=== PATIENT | male | born 1965 | race African-American/Black ===

== ENCOUNTER 2019-06-06 15:18 | Inpatient (IN) | payer MEDICAID ==
[~2019-06-06] VITALS: Ht 167.6 cm; Wt 61.9 kg
[2019-06-06 16:38] LABS: PROTHROMBIN TIME 10.4 sec (9.6-11.0)
[2019-06-06 16:39] LABS: CHLORIDE 78 mEq/L (98-107)
[2019-06-06 16:49] LABS: BASOPHILS % 0.4 % (0.0-2.0); EOSINOPHILS % 0.6 % (0.0-5.0); HEMATOCRIT. 37.7 % (42.0-52.0); HEMOGLOBIN. 13.5 g/dL (14.0-18.0); LYMPHOCYTES % 13.6 % (20.0-50.0); MEAN CORPUSCULAR HEMOGLOBIN 28.5 pg (28.0-32.0); MEAN CORPUSCULAR VOLUME 79.4 fL (80.0-94.0); MONOCYTES % 4.8 % (2.0-8.0); NEUTROPHILS % 80.6 % (40.0-76.0); PLATELET 127 x1000/uL (130-400); RED BLOOD CELL COUNT 4.75 mill/uL (4.7-6.1); RED CELL DISTRIBUTION WIDTH 15.5 % (11.6-14.6)
[2019-06-06] MEDS ORDERED: ASPIRIN 81MG TABLET PO ONE (18:15)
[2019-06-06] MEDS ORDERED: HYDRALAZINE 20MG/ML VIAL IV ONE (18:15)
[2019-06-06] MEDS ORDERED: SODIUM CHLORIDE 0.9% 1,000 ML IV ONE (18:15)
[2019-06-06] MEDS ORDERED: POTASSIUM CHLORIDE 20MEQ TABLET SR PO ONE (18:15)
[2019-06-06 19:10] LABS: CLARITY URINE CLEAR (CLEAR); COLOR URINE YELLOW (YELLOW); KETONES URINE NEGATIVE (NEGATIVE); LEUKOCYTE ESTERASE URINE NEGATIVE (NEGATIVE); NITRITE URINE NEGATIVE (NEGATIVE); OCCULT BLOOD URINE 2+ (NEGATIVE); PH URINE 5.5 (4.5-8.0); PROTEIN URINE 4+ (NEGATIVE); SPECIFIC GRAVITY URINE 1.017 (1.005-1.030); UROBILINOGEN URINE 0.2 E.U./dL (0.2-1.0)
[2019-06-06] MEDS ORDERED: MAGNESIUM/ALUMINUM HYDROXIDE/SIMETHICONE 30ML UDC PO PRN (19:45)
[2019-06-06] MEDS ORDERED: TRAMADOL 50MG TABLET PO PRN (19:45)
[2019-06-06] MEDS ORDERED: DOCUSATE SODIUM 100MG CAPSULE PO PRN (19:45)
[2019-06-06] MEDS ORDERED: ACETAMINOPHEN 325MG TABLET PO PRN (19:45)
[2019-06-06] MEDS ORDERED: ZOLPIDEM TARTRATE 5MG TABLET PO PRN (19:45)
[2019-06-06] MEDS ORDERED: GUAIFENESIN 200MG/10ML SUGAR FREE UDC PO PRN (19:45)
[2019-06-06] MEDS ORDERED: ONDANSETRON HCL 4MG/2ML INJ IV PRN (19:45)
[2019-06-06] MEDS ORDERED: LORAZEPAM 0.5MG TABLET PO PRN (19:45)
[2019-06-06] MEDS ORDERED: IPRATROPIUM/ALBUTEROL 0.5-3(2.5)MG/3ML NEB NEB PRN (19:45)
[2019-06-06] MEDS ORDERED: NITROGLYCERIN 0.4MG TABLET SL SL PRN (19:45)
[2019-06-06 22:07] LABS: ETHANOL BLOOD < 10 mg/dL
[2019-06-06 22:09] LABS: TOTAL IRON BINDING CAPACITY 250 ug/dL (250-450)
[2019-06-06 22:10] LABS: LDL CHOLESTEROL 234 mg/dL (5-100)
[2019-06-06 22:11] LABS: HDL CHOLESTEROL 61 mg/dL (40-59)
[2019-06-06 22:12] LABS: T4 FREE 1.19 ng/dL (0.76-1.46)
[2019-06-06 22:14] LABS: CREATINE KINASE MB FRACTION 3.5 ng/mL (0.5-3.6)
[2019-06-06 22:34] LABS: VITAMIN B12 SERUM >2000 pg/mL pg/mL (211-911)
[2019-06-06 22:36] LABS: FOLIC ACID (FOLATE) SERUM > 20.00 ng/mL (>5.38)
[2019-06-06] MEDS ORDERED: CARV12.545 PO (23:07)
[2019-06-06] MEDS ORDERED: HYDR100T26 PO (23:07)
[2019-06-06] MEDS ORDERED: NIFE-32 PO (23:08)
[2019-06-06] MEDS ORDERED: ISOS120T9 PO (23:10)
[2019-06-06] MEDS: FAMOTIDINE 20MG TABLET PO SCH (23:16)
[2019-06-06] MEDS: AMLODIPINE 10MG TABLET PO SCH (23:17)
[2019-06-06] MEDS: METOPROLOL TARTRATE 25MG TABLET PO SCH (23:17)
[2019-06-06] MEDS: SODIUM CHLORIDE 0.9% 1,000 ML IV SCH (23:18)
[2019-06-06] MEDS: CLONIDINE 0.1MG TABLET PO PRN (23:18)
[2019-06-06 23:59] LABS: SODIUM URINE RANDOM 22 mEq/L
[2019-06-07] VITALS (14 sets, daily range): BP systolic 125–183; BP diastolic 70–124
[2019-06-07] MEDS ORDERED: KCL 20MEQ/100ML PREMIX 100 ML IV NR
[2019-06-07 00:05] LABS: *AMPHETAMINES SCREEN URINE NEGATIVE (NEGATIVE)
[2019-06-07 00:06] LABS: *BARBITURATES SCREEN URINE NEGATIVE (NEGATIVE); *BENZODIAZEPINES SCREEN URINE NEGATIVE (NEGATIVE); *COCAINE SCREEN URINE PRESUMTIVE POSITIVE (NEGATIVE); CANNABINOID URINE SCREEN PRESUMTIVE POSITIVE (NEGATIVE); METHADONE URINE SCREEN NEGATIVE (NEGATIVE); OPIATES URINE SCREEN NEGATIVE (NEGATIVE); PHENCYCLIDINE URINE SCREEN NEGATIVE (NEGATIVE)
[2019-06-07] MEDS: ENOXAPARIN 30MG/0.3ML SYR SUBCUT SCH ×2 (00:10→21:01)
[2019-06-07 06:55] LABS: CHLORIDE 84 mEq/L (98-107)
[2019-06-07 07:03] LABS: PHOSPHORUS 7.9 mg/dL (2.5-4.9)
[2019-06-07 07:05] LABS: CREATINE KINASE 211 IU/L (39-308)
[2019-06-07 07:07] LABS: CREATINE KINASE MB FRACTION 3.2 ng/mL (0.5-3.6)
[2019-06-07 07:30] LABS: BASOPHILS % 0.6 % (0.0-2.0); EOSINOPHILS % 1.4 % (0.0-5.0); HEMATOCRIT. 32.7 % (42.0-52.0); HEMOGLOBIN. 11.8 g/dL (14.0-18.0); LYMPHOCYTES % 19.6 % (20.0-50.0); MEAN CORPUSCULAR HEMOGLOBIN 28.7 pg (28.0-32.0); MEAN CORPUSCULAR VOLUME 79.6 fL (80.0-94.0); MEAN PLATELET VOLUME 8.9 fl (7.4-10.4); MONOCYTES % 11.2 % (2.0-8.0); NEUTROPHILS % 67.2 % (40.0-76.0); PLATELET 129 x1000/uL (130-400); RED BLOOD CELL COUNT 4.11 mill/uL (4.7-6.1); RED CELL DISTRIBUTION WIDTH 15.5 % (11.6-14.6)
[2019-06-07 07:43] LABS: HEPATITIS B SURFACE ANTIGEN NEGATIVE
[2019-06-07] MEDS ORDERED: SODIUM BICARBONATE 4% (2.4MEQ) 5ML VIAL IV ONE (07:59)
[2019-06-07] MEDS ORDERED: LIDOCAINE HCL 1% 20ML VIAL (Pyxis) INJ ONE (07:59)
[2019-06-07 08:12] LABS: HEPATITIS A AB IGM NEGATIVE (NEGATIVE)
[2019-06-07] MEDS ORDERED: ATORVASTATIN CALCIUM 10MG TABLET PO SCH (09:00)
[2019-06-07 12:22] LABS: HEPATITIS B SURFACE AB 5.8 mIU/mL
[2019-06-07 13:01] LABS: HEPATITIS A AB IGM NEGATIVE (NEGATIVE)
[2019-06-07] MEDS: CLONIDINE 0.1MG TABLET PO PRN (13:21)
[2019-06-07] MEDS: LOSARTAN POTASSIUM 50 MG TABLET PO SCH ×2 (13:21→21:00)
[2019-06-07] MEDS: SEVELAMER CARBONATE 800 MG TABLET PO SCH ×3 (13:22→18:37)
[2019-06-07] MEDS: METOPROLOL TARTRATE 25MG TABLET PO SCH ×2 (13:22→21:00)
[2019-06-07] MEDS: AMLODIPINE 10MG TABLET PO SCH (13:22)
[2019-06-07] MEDS: FAMOTIDINE 20MG TABLET PO SCH (21:00)
[2019-06-08] VITALS (13 sets, daily range): BP systolic 130–153; BP diastolic 56–108
[2019-06-08] MEDS: SODIUM CHLORIDE 0.9% 1,000 ML IV SCH ×2 (06:20→11:43)
[2019-06-08] MEDS: SEVELAMER CARBONATE 800 MG TABLET PO SCH ×3 (08:28→18:57)
[2019-06-08] MEDS: LOSARTAN POTASSIUM 50 MG TABLET PO SCH ×2 (08:29→21:02)
[2019-06-08] MEDS: METOPROLOL TARTRATE 25MG TABLET PO SCH ×2 (08:30→21:02)
[2019-06-08] MEDS: AMLODIPINE 10MG TABLET PO SCH ×2 (08:30→13:35)
[2019-06-08] MEDS: CLONIDINE 0.1MG TABLET PO PRN (18:55)
[2019-06-08] MEDS: ATORVASTATIN CALCIUM 40MG TABLET PO SCH (21:02)
[2019-06-08] MEDS: FAMOTIDINE 20MG TABLET PO SCH (21:02)
[2019-06-08] MEDS: ENOXAPARIN 30MG/0.3ML SYR SUBCUT SCH (21:03)
[2019-06-09] VITALS (12 sets, daily range): BP systolic 133–168; BP diastolic 67–103
[2019-06-09] MEDS: SODIUM CHLORIDE 0.9% 1,000 ML IV SCH ×3 (03:48→18:25)
[2019-06-09] MEDS: SEVELAMER CARBONATE 800 MG TABLET PO SCH ×3 (08:38→18:25)
[2019-06-09] MEDS: AMLODIPINE 10MG TABLET PO SCH (08:38)
[2019-06-09] MEDS: LOSARTAN POTASSIUM 50 MG TABLET PO SCH ×2 (08:38→20:50)
[2019-06-09] MEDS: METOPROLOL TARTRATE 25MG TABLET PO SCH ×2 (08:39→20:50)
[2019-06-09] MEDS: CLONIDINE 0.1MG TABLET PO PRN (18:46)
[2019-06-09] MEDS: FAMOTIDINE 20MG TABLET PO SCH (20:49)
[2019-06-09] MEDS: ENOXAPARIN 30MG/0.3ML SYR SUBCUT SCH (20:50)
[2019-06-09] MEDS: ATORVASTATIN CALCIUM 40MG TABLET PO SCH (20:50)
[2019-06-09] MEDS ORDERED: DOXAZOSIN MESYLATE 2MG TABLET PO SCH (21:00)
[2019-06-10] VITALS (17 sets, daily range): BP systolic 137–172; BP diastolic 82–112
[2019-06-10] MEDS: SODIUM CHLORIDE 0.9% 1,000 ML IV SCH (06:49)
[2019-06-10] MEDS: SEVELAMER CARBONATE 800 MG TABLET PO SCH ×2 (08:25→14:44)
[2019-06-10 10:02] LABS: CLARITY URINE CLEAR (CLEAR); COLOR URINE YELLOW (YELLOW); KETONES URINE NEGATIVE (NEGATIVE); LEUKOCYTE ESTERASE URINE NEGATIVE (NEGATIVE); NITRITE URINE NEGATIVE (NEGATIVE); OCCULT BLOOD URINE TRACE (NEGATIVE); PROTEIN URINE 3+ (NEGATIVE); SPECIFIC GRAVITY URINE 1.009 (1.005-1.030); UROBILINOGEN URINE 0.2 E.U./dL (0.2-1.0)
[2019-06-10] MEDS: AMLODIPINE 10MG TABLET PO SCH (11:30)
[2019-06-10] MEDS: METOPROLOL TARTRATE 25MG TABLET PO SCH (11:30)
[2019-06-10] MEDS: LOSARTAN POTASSIUM 50 MG TABLET PO SCH (11:30)
[2019-06-10] MEDS ORDERED: LOSA50TA3 MT (12:24)
[2019-06-10] MEDS ORDERED: LIP40 PO (12:24)
[2019-06-10] MEDS ORDERED: SODIUM BICARBONATE 4% (2.4MEQ) 5ML VIAL IV ONE (12:54)
[2019-06-10] MEDS ORDERED: LIDOCAINE HCL 1% 20ML VIAL (Pyxis) INJ ONE (12:55)
[2019-06-10] MEDS ORDERED: CEFAZOLIN 1000MG PREMIX 50 ML IV ONE ×2 (13:00→13:06)
[2019-06-10] MEDS ORDERED: FENTANYL CITRATE/PF 50MCG/ML 2ML VIAL IV ONE (13:05)
[2019-06-10] MEDS ORDERED: FENTANYL CITRATE/PF 50MCG/ML 2ML VIAL ONE (13:07)
[2019-06-10] MEDS ORDERED: HYDRALAZINE HCL 50MG TABLET PO SCH (14:00)
[2019-06-15] MEDS ORDERED: COR12 PO (11:35)
== END 2019-06-10 17:25 | disposition home or self-care (01) | DRG 204 ==
LOC: ER 15:18 → 5EST 18:57 → EDBEDREQ 19:01 → EDBEDREQTM 19:01 → EDBEDREQSVC 19:01 → ENRESERV 21:46
PROVIDERS: ADMIT Internal Medicine; ATTEND Internal Medicine
PROC: 02HV33Z Insertion of Infusion Device into Superior Vena Cava, Percutaneous Approach (ICD-10-PCS; principal; 2019-06-07)
PROC: B5181ZA Fluoroscopy of Superior Vena Cava using Low Osmolar Contrast, Guidance (ICD-10-PCS; 2019-06-07)
PROC: B548ZZA Ultrasonography of Superior Vena Cava, Guidance (ICD-10-PCS; 2019-06-07)
PROC: 5A1D70Z Performance of Urinary Filtration, Intermittent, Less than 6 Hours Per Day (ICD-10-PCS; 2019-06-08)
PROC: 5A1D70Z Performance of Urinary Filtration, Intermittent, Less than 6 Hours Per Day (ICD-10-PCS; 2019-06-08)
PROC: 0JH63XZ Insertion of Tunneled Vascular Access Device into Chest Subcutaneous Tissue and Fascia, Percutaneous Approach (ICD-10-PCS; 2019-06-10)
PROC: 02HV33Z Insertion of Infusion Device into Superior Vena Cava, Percutaneous Approach (ICD-10-PCS; 2019-06-10)
PROC: B5181ZA Fluoroscopy of Superior Vena Cava using Low Osmolar Contrast, Guidance (ICD-10-PCS; 2019-06-10)
PROC: 02PYX3Z Removal of Infusion Device from Great Vessel, External Approach (ICD-10-PCS; 2019-06-10)
DX: R55 Syncope and collapse (principal); N17.0 Acute kidney failure with tubular necrosis; E87.1 Hypo-osmolality and hyponatremia; E11.22 Type 2 diabetes mellitus with diabetic chronic kidney disease; I12.0 Hypertensive chronic kidney disease with stage 5 chronic kidney disease or end stage renal disease; E87.6 Hypokalemia; D63.1 Anemia in chronic kidney disease; E78.00 Pure hypercholesterolemia, unspecified; E78.5 Hyperlipidemia, unspecified; R79.89 Other specified abnormal findings of blood chemistry; E44.1 Mild protein-calorie malnutrition; F12.10 Cannabis abuse, uncomplicated; F14.10 Cocaine abuse, uncomplicated; N18.6 End stage renal disease; Z79.899 Other long term (current) drug therapy; Z82.49 Family history of ischemic heart disease and other diseases of the circulatory system; Z68.22 Body mass index [BMI] 22.0-22.9, adult; R31.9 Hematuria, unspecified; Z71.51 Drug abuse counseling and surveillance of drug abuser
CPT/HCPCS: 36415; 36558; 36589; 71045; 76770; 76937; 77001; 80048; 80053; 80061; 80305; 80320; 81003; 82550; 82553; 82570; 82607; 82746; 83036; 83540; 83550; 83735; 83880; 83935; 84100; 84133; 84300; 84439; 84443; 84484; 84550; 85025; 86703; 86705; 86706; 86709; 86803; 87340; 93005; 93970; 99152; 99153; 99285; C1750; C1752; C1769; J0360; J0690; J1642; J1650; J3010; J3480; J3490; G0480; G0500

== ENCOUNTER 2019-06-14 10:49 | Inpatient (IN) | payer MEDICAID ==
[~2019-06-14] VITALS: Ht 175.3 cm; Wt 63.5 kg
[~2019-06-14 10:49] MED LIST: CARV12.545 PO; HYDR100T26 PO; ISOS120T9 PO; LIP40 PO; LOSA50TA3 MT; NIFE-32 PO
[2019-06-14 12:17] LABS: EOSINOPHILS % 1.6 % (0.0-5.0); HEMATOCRIT. 26.6 % (42.0-52.0); HEMOGLOBIN. 9.1 g/dL (14.0-18.0); LYMPHOCYTES % 11.7 % (20.0-50.0); MEAN CORPUSCULAR HEMOGLOBIN 28.8 pg (28.0-32.0); MEAN PLATELET VOLUME 7.1 fl (7.4-10.4); MONOCYTES % 8.1 % (2.0-8.0); NEUTROPHILS % 77.6 % (40.0-76.0); PLATELET 212 x1000/uL (130-400); RED BLOOD CELL COUNT 3.17 mill/uL (4.7-6.1); RED CELL DISTRIBUTION WIDTH 16.1 % (11.6-14.6)
[2019-06-14 12:22] LABS: CHLORIDE 104 mEq/L (98-107)
[2019-06-14 12:23] LABS: INR 0.9
[2019-06-14] MEDS ORDERED: AMLODIPINE 10MG TABLET PO SCH (12:30)
[2019-06-14] MEDS ORDERED: LOSARTAN POTASSIUM 50 MG TABLET PO SCH (12:30)
[2019-06-14] MEDS ORDERED: CARVEDILOL 12.5MG TABLET PO ONE (12:30)
[2019-06-14] MEDS ORDERED: HYDRALAZINE 20MG/ML VIAL IV ONE ×2 (12:45→15:45)
[2019-06-14] MEDS ORDERED: HYDRALAZINE HCL 50MG TABLET PO SCH (14:00)
[2019-06-14] MEDS ORDERED: ONDANSETRON HCL 4MG/2ML INJ IV PRN (14:45)
[2019-06-14] MEDS ORDERED: ACETAMINOPHEN 325MG TABLET PO PRN (14:45)
[2019-06-14] MEDS: NIFEDIPINE XL 60MG TAB PO SCH (16:49)
[2019-06-14] MEDS: LOSARTAN POTASSIUM 50 MG TABLET PO SCH (16:49)
[2019-06-14] MEDS: HYDRALAZINE HCL 100MG TABLET PO SCH (16:50)
[2019-06-14] MEDS: HYDRALAZINE 20MG/ML VIAL IV PRN ×2 (16:51→17:22)
[2019-06-14 17:00] VITALS: BP 236/132
[2019-06-14] MEDS: CLONIDINE 0.1MG TABLET PO PRN (17:22)
[2019-06-14] MEDS: SEVELAMER CARBONATE 800 MG TABLET PO SCH (18:31)
[2019-06-14] MEDS: ISOSORBIDE MONONITRATE 120MG TABLET SR 24HR PO SCH (18:31)
[2019-06-14 20:00] VITALS: BP 187/119
[2019-06-14] MEDS: HEPARIN 5000 UNITS/ML VIAL SUBCUT SCH (20:37)
[2019-06-14] MEDS ORDERED: CARVEDILOL 12.5MG TABLET PO SCH (21:00)
[2019-06-14] MEDS ORDERED: ATORVASTATIN CALCIUM 40MG TABLET PO SCH ×2 (21:00)
[2019-06-15] VITALS: BP 144/101
[2019-06-15 04:00] VITALS: BP 168/100
[2019-06-15] MEDS: CLONIDINE 0.1MG TABLET PO PRN (06:23)
[2019-06-15 06:26] LABS: BASOPHILS % 1.1 % (0.0-2.0); EOSINOPHILS % 1.9 % (0.0-5.0); HEMATOCRIT. 24.2 % (42.0-52.0); HEMOGLOBIN. 8.4 g/dL (14.0-18.0); LYMPHOCYTES % 15.5 % (20.0-50.0); MEAN CORPUSCULAR HEMOGLOBIN 28.7 pg (28.0-32.0); MEAN CORPUSCULAR VOLUME 82.1 fL (80.0-94.0); MEAN PLATELET VOLUME 7.4 fl (7.4-10.4); MONOCYTES % 9.4 % (2.0-8.0); NEUTROPHILS % 72.1 % (40.0-76.0); PLATELET 214 x1000/uL (130-400); RED BLOOD CELL COUNT 2.94 mill/uL (4.7-6.1); RED CELL DISTRIBUTION WIDTH 16.3 % (11.6-14.6)
[2019-06-15 06:32] LABS: CHLORIDE 103 mEq/L (98-107)
[2019-06-15 06:49] VITALS: BP 156/103
[2019-06-15 08:00] VITALS: BP 129/68
[2019-06-15] MEDS: SEVELAMER CARBONATE 800 MG TABLET PO SCH ×2 (08:43→13:20)
[2019-06-15] MEDS: HYDRALAZINE HCL 100MG TABLET PO SCH ×2 (08:44→13:00)
[2019-06-15] MEDS: NIFEDIPINE XL 60MG TAB PO SCH (08:45)
[2019-06-15] MEDS: LOSARTAN POTASSIUM 50 MG TABLET PO SCH (08:45)
[2019-06-15] MEDS: HEPARIN 5000 UNITS/ML VIAL SUBCUT SCH (08:46)
[2019-06-15] MEDS: ISOSORBIDE MONONITRATE 120MG TABLET SR 24HR PO SCH (08:46)
[2019-06-15] MEDS ORDERED: CARVEDILOL 12.5MG TABLET PO SCH (09:00)
[2019-06-15] MEDS ORDERED: COR12 PO (11:35)
[2019-06-15 12:27] VITALS: BP 162/98
[2019-06-15 15:31] VITALS: BP 156/80
[2019-06-15] MEDS ORDERED: LOSARTAN POTASSIUM 50 MG TABLET PO SCH (21:00)
== END 2019-06-15 15:30 | disposition home or self-care (01) | DRG 425 ==
LOC: ER 10:49 → 6WST 14:06 → EDBEDREQ 14:07 → EDBEDREQSVC 14:07 → EDBEDREQTM 14:07 → ENRESERV 15:13
PROVIDERS: ADMIT Internal Medicine; ATTEND Internal Medicine
PROC: 5A1D70Z Performance of Urinary Filtration, Intermittent, Less than 6 Hours Per Day (ICD-10-PCS; principal; 2019-06-15)
DX: E87.70 Fluid overload, unspecified (principal); I12.0 Hypertensive chronic kidney disease with stage 5 chronic kidney disease or end stage renal disease; I16.1 Hypertensive emergency; N18.6 End stage renal disease; R00.0 Tachycardia, unspecified; R79.89 Other specified abnormal findings of blood chemistry; E78.5 Hyperlipidemia, unspecified; D63.1 Anemia in chronic kidney disease; I45.10 Unspecified right bundle-branch block; Z99.2 Dependence on renal dialysis
CPT/HCPCS: 36415; 71045; 80053; 80061; 82962; 83735; 84484; 85025; 93005; 93306; 99285; J0360; J1644

== ENCOUNTER 2019-11-19 08:31 | Inpatient (IN) | payer MEDICAID ==
[~2019-11-19] VITALS: Ht 175.3 cm; Wt 57.8 kg
[~2019-11-19 08:31] MED LIST changes: -CARV12.545 PO; +COR12 PO
[2019-11-19] MEDS ORDERED: MORPHINE SULFATE 4 MG/ML CPJ (NOT FOR IM USE) IV STA (10:10)
[2019-11-19] MEDS ORDERED: ONDANSETRON HCL 4MG/2ML INJ IV STA (10:10)
[2019-11-19 11:25] LABS: EOSINOPHILS % 1.8 % (0.0-5.0); HEMOGLOBIN. 12.8 g/dL (14.0-18.0); LYMPHOCYTES % 19.7 % (20.0-50.0); MEAN CORPUSCULAR HEMOGLOBIN 28.2 pg (28.0-32.0); MEAN CORPUSCULAR VOLUME 83.7 fL (80.0-94.0); MEAN PLATELET VOLUME 7.2 fl (7.4-10.4); MONOCYTES % 6.6 % (2.0-8.0); NEUTROPHILS % 70.9 % (40.0-76.0); PLATELET 164 x1000/uL (130-400); RED BLOOD CELL COUNT 4.53 mill/uL (4.7-6.1); RED CELL DISTRIBUTION WIDTH 19.2 % (11.6-14.6)
[2019-11-19 11:31] LABS: CHLORIDE 96 mEq/L (98-107)
[2019-11-19 14:31] LABS: CLARITY URINE CLEAR (CLEAR); COLOR URINE YELLOW (YELLOW); KETONES URINE NEGATIVE (NEGATIVE); LEUKOCYTE ESTERASE URINE NEGATIVE (NEGATIVE); NITRITE URINE NEGATIVE (NEGATIVE); OCCULT BLOOD URINE TRACE (NEGATIVE); PH URINE >=9.0 (4.5-8.0); PROTEIN URINE 3+ (NEGATIVE); SPECIFIC GRAVITY URINE 1.014 (1.005-1.030); UROBILINOGEN URINE 0.2 E.U./dL (0.2-1.0)
[2019-11-19] MEDS ORDERED: ACETAMINOPHEN 325MG TABLET PO PRN (14:45)
[2019-11-19] MEDS ORDERED: MORPHINE SULFATE 2 MG/ML CPJ (NOT FOR IM USE) IV PRN (14:45)
[2019-11-19] MEDS ORDERED: MAGNESIUM/ALUMINUM HYDROXIDE/SIMETHICONE 30ML UDC PO PRN (14:45)
[2019-11-19] MEDS ORDERED: IPRATROPIUM/ALBUTEROL 0.5-3(2.5)MG/3ML NEB NEB PRN (14:45)
[2019-11-19] MEDS ORDERED: DOCUSATE SODIUM 100MG CAPSULE PO PRN (14:45)
[2019-11-19] MEDS ORDERED: ONDANSETRON HCL 4MG/2ML INJ IV PRN (14:45)
[2019-11-19] MEDS ORDERED: DIPHENHYDRAMINE 50MG/ML VIAL IV PRN (14:45)
[2019-11-19] MEDS ORDERED: ENOXAPARIN 40MG/0.4ML SYR SUBCUT SCH (14:45)
[2019-11-19] MEDS ORDERED: LORAZEPAM 2MG/ML CPJ IV PRN (14:45)
[2019-11-19] MEDS ORDERED: NA PHOS,M-B/NA PHOS,DI-BA ENEMA 118ML PR PRN (14:45)
[2019-11-19] MEDS ORDERED: HYDROCODONE/ACETAMINOPHEN 5/325MG TABLET PO PRN (14:45)
[2019-11-19] MEDS ORDERED: GUAIFENESIN 200MG/10ML SUGAR FREE UDC PO PRN (14:45)
[2019-11-19] MEDS: ENOXAPARIN 30MG/0.3ML SYR SUBCUT SCH (15:36)
[2019-11-19] MEDS: CLONIDINE 0.1MG TABLET PO PRN (22:29)
[2019-11-19 22:45] VITALS: BP 191/108
[2019-11-20] VITALS: BP 165/97
[2019-11-20 04:00] VITALS: BP 178/110
[2019-11-20] MEDS: CLONIDINE 0.1MG TABLET PO PRN ×2 (05:00→14:47)
[2019-11-20 06:59] LABS: BASOPHILS % 1.2 % (0.0-2.0); EOSINOPHILS % 3.3 % (0.0-5.0); HEMATOCRIT. 32.9 % (42.0-52.0); HEMOGLOBIN. 11.2 g/dL (14.0-18.0); LYMPHOCYTES % 27.5 % (20.0-50.0); MEAN CORPUSCULAR HEMOGLOBIN 28.5 pg (28.0-32.0); MEAN CORPUSCULAR VOLUME 84.1 fL (80.0-94.0); MEAN PLATELET VOLUME 7.1 fl (7.4-10.4); MONOCYTES % 10.4 % (2.0-8.0); NEUTROPHILS % 57.6 % (40.0-76.0); PLATELET 163 x1000/uL (130-400); RED BLOOD CELL COUNT 3.92 mill/uL (4.7-6.1); RED CELL DISTRIBUTION WIDTH 18.7 % (11.6-14.6)
[2019-11-20] MEDS ORDERED: AMLO10TA80 PO (07:09)
[2019-11-20] MEDS ORDERED: MINO10TA PO (07:09)
[2019-11-20] MEDS ORDERED: CALC667C PO (07:09)
[2019-11-20] MEDS ORDERED: DOXA2TAB2 PO (07:09)
[2019-11-20] MEDS ORDERED: REN800 PO (07:09)
[2019-11-20] MEDS ORDERED: LOSA50TA41 PO (07:09)
[2019-11-20 07:10] LABS: CHLORIDE 96 mEq/L (98-107)
[2019-11-20 07:30] LABS: LDL CHOLESTEROL 45 mg/dL (5-100)
[2019-11-20 07:33] LABS: HDL CHOLESTEROL 55 mg/dL (40-59); T4 FREE 1.35 ng/dL (0.76-1.46)
[2019-11-20 08:00] VITALS: BP 153/94
[2019-11-20] MEDS: ASPIRIN 81MG EC TABLET PO SCH (08:11)
[2019-11-20 12:00] VITALS: BP 165/109
[2019-11-20] MEDS: ENOXAPARIN 30MG/0.3ML SYR SUBCUT SCH (14:21)
[2019-11-20 14:45] VITALS: BP 171/118
[2019-11-20 20:00] VITALS: BP 163/124
[2019-11-20] MEDS: METOPROLOL TARTRATE 25MG TABLET PO SCH (20:21)
[2019-11-20] MEDS: CLONIDINE 0.2MG TABLET PO PRN (21:05)
[2019-11-21] VITALS: BP 148/84
[2019-11-21 04:00] VITALS: BP 173/112
[2019-11-21] MEDS: CLONIDINE 0.2MG TABLET PO PRN (04:22)
[2019-11-21 08:00] VITALS: BP 164/103
[2019-11-21] MEDS ORDERED: LOSARTAN POTASSIUM 50 MG TABLET PO SCH (08:00)
[2019-11-21] MEDS ORDERED: AMLODIPINE 10MG TABLET PO SCH ×2 (08:00→09:00)
[2019-11-21] MEDS: ASPIRIN 81MG EC TABLET PO SCH (10:09)
[2019-11-21] MEDS: METOPROLOL TARTRATE 25MG TABLET PO SCH (10:09)
[2019-11-21] MEDS: CLONIDINE 0.1MG TABLET PO PRN (10:09)
[2019-11-21 12:30] VITALS: BP 135/95
[2019-11-21] MEDS: ENOXAPARIN 30MG/0.3ML SYR SUBCUT SCH (15:00)
[2019-11-21 15:02] VITALS: BP 135/95
== END 2019-11-21 18:25 | disposition home or self-care (01) | DRG 194 ==
LOC: ER 09:16 → 6WST 14:01 → EDBEDREQ 14:09 → EDBEDREQTM 14:09 → ENRESERV 20:12
PROVIDERS: ADMIT Internal Medicine; ATTEND Internal Medicine
PROC: 5A1D70Z Performance of Urinary Filtration, Intermittent, Less than 6 Hours Per Day (ICD-10-PCS; principal; 2019-11-20)
DX: I13.2 Hypertensive heart and chronic kidney disease with heart failure and with stage 5 chronic kidney disease, or end stage renal disease (principal); E87.70 Fluid overload, unspecified; J96.00 Acute respiratory failure, unspecified whether with hypoxia or hypercapnia; I25.10 Atherosclerotic heart disease of native coronary artery without angina pectoris; K56.609 Unspecified intestinal obstruction, unspecified as to partial versus complete obstruction; E46 Unspecified protein-calorie malnutrition; N18.6 End stage renal disease; R65.10 Systemic inflammatory response syndrome (SIRS) of non-infectious origin without acute organ dysfunction; Z99.2 Dependence on renal dialysis; Z79.899 Other long term (current) drug therapy; Z68.1 Body mass index [BMI] 19.9 or less, adult; I50.33 Acute on chronic diastolic (congestive) heart failure
CPT/HCPCS: 36415; 74176; 80048; 80053; 80061; 81003; 84439; 84443; 84484; 85025; 93005; 93306; 96374; 99285; J1650; J2270; J2405

== ENCOUNTER 2020-01-29 13:53 | Inpatient (IN) | payer MEDICAID ==
[~2020-01-29] VITALS: Ht 175.3 cm; Wt 60.3 kg
[~2020-01-29 13:53] MED LIST changes: +AMLO10TA80 PO; +CALC667C PO; +DOXA2TAB2 PO; +LOSA50TA41 PO; +MINO10TA PO; +REN800 PO
[2020-01-29] MEDS ORDERED: ONDANSETRON HCL 4MG/2ML INJ IM ONE (16:00)
[2020-01-29] MEDS ORDERED: LABETALOL 5MG/ML SYR 20 MG/4 ML SYRINGE IV ONE (16:00)
[2020-01-29 16:32] LABS: BASOPHILS % 0.7 % (0.0-2.0); EOSINOPHILS % 0.5 % (0.0-5.0); HEMATOCRIT. 40.8 % (42.0-52.0); HEMOGLOBIN. 13.7 g/dL (14.0-18.0); MEAN CORPUSCULAR HEMOGLOBIN 29.6 pg (28.0-32.0); MEAN CORPUSCULAR VOLUME 87.8 fL (80.0-94.0); MONOCYTES % 4.1 % (2.0-8.0); NEUTROPHILS % 79.7 % (40.0-76.0); RED BLOOD CELL COUNT 4.65 mill/uL (4.7-6.1); RED CELL DISTRIBUTION WIDTH 15.7 % (11.6-14.6)
[2020-01-29 16:44] LABS: CHLORIDE 101 mEq/L (98-107)
[2020-01-29] MEDS ORDERED: HYDRALAZINE 20MG/ML VIAL IV ONE (17:00)
[2020-01-29 17:18] LABS: MEAN PLATELET VOLUME 7.6 fl (7.4-10.4); PLATELET 129 x1000/uL (130-400)
[2020-01-29] MEDS ORDERED: NITROGLYCERIN OINT 1GM/INCH UDPKT TD NR (18:15)
[2020-01-29] MEDS ORDERED: ONDANSETRON HCL 4MG/2ML INJ IV ONE (20:30)
[2020-01-29] MEDS: NICARDIPINE IV PRN (21:06)
[2020-01-30] MEDS: ONDANSETRON HCL 4MG/2ML INJ IV PRN ×2 (04:33→14:40)
[2020-01-30] MEDS ORDERED: MORPHINE SULFATE 2 MG/ML CPJ (NOT FOR IM USE) IV PRN (08:45)
[2020-01-30] MEDS ORDERED: ACETAMINOPHEN 325MG TABLET PO PRN (08:45)
[2020-01-30] MEDS ORDERED: CLONIDINE 0.1MG TABLET PO PRN (08:45)
[2020-01-30] MEDS ORDERED: LOSARTAN POTASSIUM 100 MG TABLET PO SCH (09:00)
[2020-01-30] MEDS: AMLODIPINE 10MG TABLET PO SCH (10:45)
[2020-01-30] MEDS: LOSARTAN POTASSIUM 50 MG TABLET PO SCH ×2 (11:58→22:54)
[2020-01-30] MEDS: HYDRALAZINE HCL 50MG TABLET PO SCH ×2 (12:05→18:12)
[2020-01-30] MEDS: SEVELAMER CARBONATE 800 MG TABLET PO SCH ×2 (14:00→18:04)
[2020-01-30] MEDS ORDERED: HYDRALAZINE HCL 100MG TABLET PO SCH (14:00)
[2020-01-30] MEDS ORDERED: IOHEXOL-300 100 ML BOTTLE ONE (15:28)
[2020-01-30] MEDS: SPIRONOLACTONE 25MG TABLET PO SCH ×2 (18:42→23:02)
[2020-01-30] MEDS: NICARDIPINE IV PRN (20:41)
[2020-01-30] MEDS ORDERED: NICARDIPINE 50 MG in SODIUM CHLORIDE 0.9% 250 ML IV PRN (21:15)
[2020-01-30] MEDS: ATORVASTATIN CALCIUM 20MG TABLET PO SCH (22:55)
[2020-01-30 23:37] VITALS: BP 160/104
[2020-01-30 23:48] VITALS: BP 165/79
[2020-01-31] VITALS (65 sets, daily range): BP systolic 110–165; BP diastolic 57–103
[2020-01-31] MEDS: ONDANSETRON HCL 4MG/2ML INJ IV PRN ×2 (00:34→10:45)
[2020-01-31] MEDS: HYDRALAZINE HCL 50MG TABLET PO SCH ×4 (00:35→17:51)
[2020-01-31] MEDS: CARVEDILOL 12.5MG TABLET PO SCH ×3 (00:35→22:02)
[2020-01-31] MEDS ORDERED: NICARDIPINE 40MG/200ML PREMIX 200 ML IV PRN (01:30)
[2020-01-31] MEDS ORDERED: NICARDIPINE 50 MG in SODIUM CHLORIDE 0.9% 250 ML IV PRN (01:45)
[2020-01-31] MEDS ORDERED: CALCIUM ACETATE 667MG CAPSULE PO SCH (08:20)
[2020-01-31] MEDS: SEVELAMER CARBONATE 800 MG TABLET PO SCH ×3 (08:21→17:51)
[2020-01-31] MEDS: SPIRONOLACTONE 25MG TABLET PO SCH ×4 (08:22→21:00)
[2020-01-31] MEDS: AMLODIPINE 10MG TABLET PO SCH (08:23)
[2020-01-31] MEDS: LOSARTAN POTASSIUM 50 MG TABLET PO SCH ×2 (08:23→22:02)
[2020-01-31] MEDS ORDERED: CARVEDILOL 12.5MG TABLET PO SCH (09:00)
[2020-01-31] MEDS ORDERED: ISOSORBIDE MONONITRATE 120 MG PO SCH (09:00)
[2020-01-31] MEDS ORDERED: SEVELAMER HCL PO SCH (09:00)
[2020-01-31] MEDS ORDERED: LOSARTAN POTASSIUM 50 MG TABLET PO SCH ×2 (09:00→21:00)
[2020-01-31] MEDS ORDERED: HYDRALAZINE HCL 100MG TABLET PO SCH (09:00)
[2020-01-31] MEDS ORDERED: MINOXIDIL 10MG TABLET PO SCH (09:00)
[2020-01-31] MEDS ORDERED: AMLODIPINE 10MG TABLET PO SCH (09:00)
[2020-01-31] MEDS ORDERED: NIFEDIPINE XL 60MG TAB PO SCH (09:00)
[2020-01-31 09:35] LABS: BASOPHILS % 0.8 % (0.0-2.0); EOSINOPHILS % 0.9 % (0.0-5.0); HEMATOCRIT. 31.6 % (42.0-52.0); HEMOGLOBIN. 10.8 g/dL (14.0-18.0); LYMPHOCYTES % 20.9 % (20.0-50.0); MEAN CORPUSCULAR HEMOGLOBIN 29.8 pg (28.0-32.0); MEAN CORPUSCULAR VOLUME 86.8 fL (80.0-94.0); MEAN PLATELET VOLUME 8.5 fl (7.4-10.4); MONOCYTES % 9.7 % (2.0-8.0); NEUTROPHILS % 67.7 % (40.0-76.0); PLATELET 101 x1000/uL (130-400); RED BLOOD CELL COUNT 3.64 mill/uL (4.7-6.1)
[2020-01-31 09:43] LABS: PHOSPHORUS 3.6 mg/dL (2.5-4.9)
[2020-01-31] MEDS ORDERED: ATORVASTATIN CALCIUM 40MG TABLET PO SCH (21:00)
[2020-01-31] MEDS: ZOLPIDEM TARTRATE 5MG TABLET PO PRN (22:01)
[2020-01-31] MEDS: DOXAZOSIN MESYLATE 2MG TABLET PO SCH (22:01)
[2020-01-31] MEDS: ATORVASTATIN CALCIUM 20MG TABLET PO SCH (22:02)
[2020-02-01] VITALS: BP 122/79
[2020-02-01 04:00] VITALS: BP 144/93
[2020-02-01] MEDS: HYDRALAZINE HCL 50MG TABLET PO SCH ×4 (06:46→18:10)
[2020-02-01 08:00] VITALS: BP 129/70
[2020-02-01] MEDS: SEVELAMER CARBONATE 800 MG TABLET PO SCH ×3 (09:29→21:57)
[2020-02-01] MEDS: AMLODIPINE 10MG TABLET PO SCH (09:30)
[2020-02-01] MEDS: CARVEDILOL 12.5MG TABLET PO SCH ×2 (09:30→21:58)
[2020-02-01] MEDS: SPIRONOLACTONE 25MG TABLET PO SCH ×2 (09:30→18:09)
[2020-02-01] MEDS: LOSARTAN POTASSIUM 50 MG TABLET PO SCH ×2 (09:30→21:58)
[2020-02-01 12:00] VITALS: BP 137/86
[2020-02-01 16:00] VITALS: BP 147/89
[2020-02-01 20:00] VITALS: BP 162/93
[2020-02-01] MEDS: ZOLPIDEM TARTRATE 5MG TABLET PO PRN (21:58)
[2020-02-01] MEDS: ATORVASTATIN CALCIUM 20MG TABLET PO SCH (21:58)
[2020-02-01] MEDS: DOXAZOSIN MESYLATE 2MG TABLET PO SCH (21:59)
[2020-02-02] VITALS: BP_SYST 119; BP_SYST 145; BP_DIAS 72; BP_DIAS 98
[2020-02-02] MEDS: HYDRALAZINE HCL 50MG TABLET PO SCH ×2 (00:14→05:50)
[2020-02-02 04:00] VITALS: BP 143/88
[2020-02-02 08:00] VITALS: BP 153/95
[2020-02-02] MEDS: SEVELAMER CARBONATE 800 MG TABLET PO SCH (08:09)
[2020-02-02] MEDS: ONDANSETRON HCL 4MG/2ML INJ IV PRN (08:09)
[2020-02-02] MEDS: SPIRONOLACTONE 25MG TABLET PO SCH (08:09)
[2020-02-02] MEDS: CARVEDILOL 12.5MG TABLET PO SCH (08:09)
[2020-02-02] MEDS: LOSARTAN POTASSIUM 50 MG TABLET PO SCH (08:10)
[2020-02-02] MEDS: AMLODIPINE 10MG TABLET PO SCH (08:10)
[2020-02-02 09:48] VITALS: BP 153/95
== END 2020-02-02 11:55 | disposition home or self-care (01) | DRG 249 ==
LOC: ER 13:53 → EDBEDREQTM 20:18 → EDBEDREQ 20:18 → MICUSO 20:20 → EDBEDREQSVC 20:25 → EDBEDREQ 20:25 → EDBEDREQTM 20:25 → EDBEDREQSVC 01-30 09:16 → ENRESERV 01-30 21:56 → CVICU 01-30 23:25 → 8WST 01-31 18:17
PROVIDERS: ADMIT Internal Medicine; ATTEND Internal Medicine
DX: K52.9 Noninfective gastroenteritis and colitis, unspecified (principal); I13.2 Hypertensive heart and chronic kidney disease with heart failure and with stage 5 chronic kidney disease, or end stage renal disease; I16.0 Hypertensive urgency; N18.6 End stage renal disease; E87.1 Hypo-osmolality and hyponatremia; E78.5 Hyperlipidemia, unspecified; E26.01 Conn's syndrome; F12.90 Cannabis use, unspecified, uncomplicated; I50.9 Heart failure, unspecified; D63.1 Anemia in chronic kidney disease; Z79.899 Other long term (current) drug therapy; Z83.3 Family history of diabetes mellitus; Z99.2 Dependence on renal dialysis; Z56.0 Unemployment, unspecified
CPT/HCPCS: 36415; 71045; 74175; 74177; 76700; 80048; 80053; 83735; 83880; 84100; 84484; 85025; 93005; 96374; 99291; J0360; J2270; J2405; J3490; J7050; Q9967

== ENCOUNTER 2021-10-03 05:06 | Inpatient (IN) | payer MEDICAID ==
[~2021-10-03] VITALS: Ht 152.4 cm; Wt 60.3 kg
[~2021-10-03 05:06] MED LIST changes: -AMLO10TA80 PO; -CALC667C PO; -DOXA2TAB2 PO; -ISOS120T9 PO; -LIP40 PO; -LOSA50TA3 MT; +LOSA50TA3 PO; -LOSA50TA41 PO; -MINO10TA PO; -NIFE-32 PO; +NIFE90TA60 PO; -REN800 PO
[2021-10-03] MEDS ORDERED: VANCOMYCIN 1G PREMIX 200 ML IV ONE (09:15)
[2021-10-03] MEDS ORDERED: PIPERACILLIN/TAZ 3.375G PREMIX 50 ML IV ONE (09:15)
[2021-10-03] MEDS ORDERED: HYDRALAZINE 20MG/ML VIAL IV ONE (09:30)
[2021-10-03] MEDS ORDERED: VANCOMYCIN 1GM PMX (XELLIA) 200 ML IV NR (10:30)
[2021-10-03 10:34] LABS: BASOPHILS % 1.2 % (0.0-2.0); EOSINOPHILS % 1.7 % (0.0-5.0); HEMATOCRIT. 38.2 % (42.0-52.0); HEMOGLOBIN. 12.4 g/dL (14.0-18.0); LYMPHOCYTES % 11.5 % (20.0-50.0); MEAN CORPUSCULAR HEMOGLOBIN 30.7 pg (28.0-32.0); MEAN CORPUSCULAR VOLUME 94.3 fL (80.0-94.0); MEAN PLATELET VOLUME 10.8 fl (7.4-10.4); MONOCYTES % 7.6 % (2.0-8.0); PLATELET 180 x1000/uL (130-400); RED BLOOD CELL COUNT 4.05 mill/uL (4.7-6.1); RED CELL DISTRIBUTION WIDTH 15.7 % (11.6-14.6)
[2021-10-03 10:41] LABS: CHLORIDE 105 mEq/L (98-107)
[2021-10-03] MEDS ORDERED: ONDANSETRON HCL 4MG/2ML INJ IV PRN (11:30)
[2021-10-03] MEDS ORDERED: ACETAMINOPHEN 325MG TABLET PO PRN ×2 (11:30)
[2021-10-03] MEDS ORDERED: ZOLPIDEM TARTRATE 5MG TABLET PO PRN (11:30)
[2021-10-03] MEDS ORDERED: HYDRALAZINE 20MG/ML VIAL IV PRN (11:30)
[2021-10-03] MEDS ORDERED: DIPHENHYDRAMINE 50MG/ML VIAL IV PRN (11:30)
[2021-10-03] MEDS ORDERED: ENOXAPARIN 40MG/0.4ML SYR SUBCUT SCH (11:30)
[2021-10-03] MEDS: CLONIDINE 0.2MG TABLET PO PRN ×2 (11:53→17:40)
[2021-10-03 12:18] LABS: HEPATITIS B SURFACE ANTIGEN NEGATIVE
[2021-10-03] MEDS: CARVEDILOL 12.5MG TABLET PO SCH ×2 (12:31→20:17)
[2021-10-03] MEDS: LOSARTAN POTASSIUM 50 MG TABLET PO SCH ×2 (12:32→20:16)
[2021-10-03] MEDS: ENOXAPARIN 30MG/0.3ML SYR SUBCUT SCH (14:00)
[2021-10-03 17:25] VITALS: BP 184/126
[2021-10-03] MEDS: HYDRALAZINE HCL 50MG TABLET PO SCH ×3 (18:00→23:36)
[2021-10-03] MEDS ORDERED: AMLO2.5T45 MT (18:28)
[2021-10-03] MEDS ORDERED: CINA30TA5 PO (18:28)
[2021-10-03] MEDS ORDERED: FERR210T MT (18:28)
[2021-10-03] MEDS ORDERED: REN800 PO (18:28)
[2021-10-03] MEDS ORDERED: DOXA2TAB2 MT (18:28)
[2021-10-03 20:00] VITALS: BP 162/73
[2021-10-03] MEDS: DOXAZOSIN MESYLATE 4MG TABLET PO SCH (20:16)
[2021-10-03] MEDS: SODIUM CHLORIDE 0.9% INJ 3ML FLUSH IVF SCH (20:17)
[2021-10-04] VITALS: BP 155/103
[2021-10-04 04:00] VITALS: BP 150/100
[2021-10-04] MEDS: CLONIDINE 0.2MG TABLET PO PRN ×2 (05:59→16:35)
[2021-10-04] MEDS: HYDRALAZINE HCL 50MG TABLET PO SCH ×3 (05:59→18:26)
[2021-10-04] MEDS: SODIUM CHLORIDE 0.9% INJ 3ML FLUSH IVF SCH ×3 (05:59→20:29)
[2021-10-04 07:31] LABS: EOSINOPHILS % 2.3 % (0.0-5.0); HEMATOCRIT. 35.6 % (42.0-52.0); HEMOGLOBIN. 11.8 g/dL (14.0-18.0); LYMPHOCYTES % 13.7 % (20.0-50.0); MEAN CORPUSCULAR HEMOGLOBIN 30.7 pg (28.0-32.0); MEAN CORPUSCULAR VOLUME 92.3 fL (80.0-94.0); MEAN PLATELET VOLUME 10.4 fl (7.4-10.4); MONOCYTES % 13.1 % (2.0-8.0); NEUTROPHILS % 69.9 % (40.0-76.0); PLATELET 165 x1000/uL (130-400); RED BLOOD CELL COUNT 3.85 mill/uL (4.7-6.1); RED CELL DISTRIBUTION WIDTH 15.3 % (11.6-14.6)
[2021-10-04 08:00] VITALS: BP 191/119
[2021-10-04] MEDS: ENOXAPARIN 30MG/0.3ML SYR SUBCUT SCH (08:17)
[2021-10-04] MEDS: CARVEDILOL 12.5MG TABLET PO SCH ×2 (08:17→20:27)
[2021-10-04] MEDS: LOSARTAN POTASSIUM 50 MG TABLET PO SCH ×2 (08:18→20:27)
[2021-10-04] MEDS: SEVELAMER CARBONATE 800 MG TABLET PO SCH ×3 (08:18→18:27)
[2021-10-04] MEDS: CINACALCET HCL 60MG TABLET PO SCH (09:15)
[2021-10-04] MEDS: FOLIC ACID/VITAMIN B COMP W-C TABLET PO SCH (09:15)
[2021-10-04 12:00] VITALS: BP 184/110
[2021-10-04 16:00] VITALS: BP 194/124
[2021-10-04 20:00] VITALS: BP 181/119
[2021-10-04] MEDS: NIFEDIPINE XL 90MG TAB PO SCH (20:28)
[2021-10-04] MEDS: DOXAZOSIN MESYLATE 4MG TABLET PO SCH (20:29)
[2021-10-04] MEDS: HYDRALAZINE HCL 100MG TABLET PO SCH (22:41)
[2021-10-05] VITALS: BP 164/113
[2021-10-05 04:00] VITALS: BP 156/93
[2021-10-05] MEDS: SODIUM CHLORIDE 0.9% INJ 3ML FLUSH IVF SCH ×2 (05:13→13:00)
[2021-10-05] MEDS: HYDRALAZINE HCL 100MG TABLET PO SCH ×2 (05:13→13:00)
[2021-10-05 07:52] VITALS: BP 162/99
[2021-10-05] MEDS: NIFEDIPINE XL 90MG TAB PO SCH (08:02)
[2021-10-05] MEDS: CARVEDILOL 12.5MG TABLET PO SCH ×2 (08:02→20:36)
[2021-10-05] MEDS: LOSARTAN POTASSIUM 50 MG TABLET PO SCH ×2 (08:02→20:36)
[2021-10-05] MEDS: CINACALCET HCL 60MG TABLET PO SCH (08:02)
[2021-10-05] MEDS: SEVELAMER CARBONATE 800 MG TABLET PO SCH ×3 (08:02→16:48)
[2021-10-05] MEDS: FOLIC ACID/VITAMIN B COMP W-C TABLET PO SCH (08:03)
[2021-10-05] MEDS: ENOXAPARIN 30MG/0.3ML SYR SUBCUT SCH (08:03)
[2021-10-05 10:13] LABS: BASOPHILS % 1.1 % (0.0-2.0); EOSINOPHILS % 2.9 % (0.0-5.0); HEMATOCRIT. 30.9 % (42.0-52.0); HEMOGLOBIN. 10.1 g/dL (14.0-18.0); LYMPHOCYTES % 18.2 % (20.0-50.0); MEAN CORPUSCULAR HEMOGLOBIN 30.3 pg (28.0-32.0); MEAN CORPUSCULAR VOLUME 92.8 fL (80.0-94.0); MEAN PLATELET VOLUME 9.6 fl (7.4-10.4); MONOCYTES % 9.8 % (2.0-8.0); PLATELET 154 x1000/uL (130-400); RED BLOOD CELL COUNT 3.33 mill/uL (4.7-6.1); RED CELL DISTRIBUTION WIDTH 15.2 % (11.6-14.6)
[2021-10-05 11:31] VITALS: BP 146/98
[2021-10-05 16:29] VITALS: BP 163/102
[2021-10-05] MEDS: CLONIDINE 0.2MG TABLET PO PRN (16:48)
[2021-10-05 17:59] VITALS: BP 156/96
[2021-10-05] MEDS: DOXAZOSIN MESYLATE 4MG TABLET PO SCH (20:36)
== END 2021-10-05 20:46 | disposition home or self-care (01) | DRG 425 ==
LOC: ER 05:06 → 7WST 09:42 → EDBEDREQSVC 10:07 → ENRESERV 15:38
PROVIDERS: ADMIT Internal Medicine; ATTEND Internal Medicine
PROC: 5A1D70Z Performance of Urinary Filtration, Intermittent, Less than 6 Hours Per Day (ICD-10-PCS; principal; 2021-10-03)
DX: E87.70 Fluid overload, unspecified (principal); I12.0 Hypertensive chronic kidney disease with stage 5 chronic kidney disease or end stage renal disease; N18.6 End stage renal disease; D64.9 Anemia, unspecified; Z20.822 Contact with and (suspected) exposure to COVID-19; Z99.2 Dependence on renal dialysis
CPT/HCPCS: 36415; 71045; 80048; 80053; 83605; 84484; 85025; 86705; 86709; 86803; 87340; 87426; 93005; 99291; C9803; J0360; J1650; J2543; J3370

== ENCOUNTER 2021-11-19 18:41 | Inpatient (IN) | payer MEDICAID ==
[~2021-11-19] VITALS: Ht 175.3 cm; Wt 66.7 kg
[~2021-11-19 18:41] MED LIST changes: +AMLO2.5T45 MT; +CINA30TA5 PO; +DOXA2TAB2 MT; +FERR210T MT; +REN800 PO
[2021-11-19 22:03] LABS: HEMATOCRIT 29.5 % (42.0-52.0); HEMOGLOBIN 9.6 g/dL (14.0-18.0); MEAN CORPUSCULAR HEMOGLOBIN 30.8 pg (28.0-32.0); MEAN CORPUSCULAR VOLUME 95.1 fL (80.0-94.0); PLATELET 258 x1000/uL (130-400); RED CELL DISTRIBUTION WIDTH 15.4 % (11.6-14.6)
[2021-11-19 22:09] LABS: CHLORIDE 99 mEq/L (98-107)
[2021-11-19] MEDS ORDERED: FUROSEMIDE 100MG/10ML VIAL IVP ONE (23:45)
[2021-11-20] VITALS (14 sets, daily range): BP systolic 158–188; BP diastolic 93–115
[2021-11-20] MEDS ORDERED: CLONIDINE 0.1MG TABLET PO PRN (00:30)
[2021-11-20] MEDS ORDERED: GUAIFENESIN 200MG/10ML SUGAR FREE UDC PO PRN (00:30)
[2021-11-20] MEDS ORDERED: ONDANSETRON HCL 4MG/2ML INJ IV PRN (00:30)
[2021-11-20] MEDS ORDERED: ACETAMINOPHEN 325MG TABLET PO PRN ×2 (00:30)
[2021-11-20] MEDS ORDERED: MAGNESIUM/ALUMINUM HYDROXIDE/SIMETHICONE 30ML UDC PO PRN (00:30)
[2021-11-20] MEDS ORDERED: IPRATROPIUM/ALBUTEROL 0.5-3(2.5)MG/3ML NEB HHN PRN (00:30)
[2021-11-20] MEDS ORDERED: DIPHENHYDRAMINE 50MG/ML VIAL IV PRN (00:30)
[2021-11-20] MEDS ORDERED: HYDRALAZINE HCL 50MG TABLET PO SCH (06:00)
[2021-11-20] MEDS: SODIUM CHLORIDE 0.9% INJ 3ML FLUSH IVF SCH ×3 (06:00→21:06)
[2021-11-20] MEDS ORDERED: CEFAZOLIN 1000MG PREMIX 50 ML IV NR (08:00)
[2021-11-20 08:55] LABS: PROTHROMBIN TIME 11.2 sec (9.6-11.0)
[2021-11-20] MEDS ORDERED: CARVEDILOL 12.5MG TABLET PO SCH (09:00)
[2021-11-20] MEDS ORDERED: AMLODIPINE 5MG TABLET PO SCH (09:00)
[2021-11-20] MEDS ORDERED: LIDOCAINE HCL/PF 1% 10 MG/ML 5ML VIAL ONE (09:15)
[2021-11-20] MEDS ORDERED: HEPARIN 1000 UNITS/ML 10ML ONE (09:15)
[2021-11-20] MEDS ORDERED: FENTANYL CITRATE/PF 50MCG/ML 2ML VIAL ONE (09:18)
[2021-11-20] MEDS ORDERED: FENTANYL CITRATE/PF 50MCG/ML 2ML VIAL IV ONE (10:30)
[2021-11-20] MEDS: CARVEDILOL 12.5MG TABLET PO SCH ×2 (11:04→21:06)
[2021-11-20] MEDS: AMLODIPINE 10MG TABLET PO SCH (11:04)
[2021-11-20] MEDS: LOSARTAN POTASSIUM 50 MG TABLET PO SCH ×2 (11:04→21:06)
[2021-11-20] MEDS: HYDRALAZINE HCL 50MG TABLET PO SCH ×3 (13:05→21:05)
[2021-11-20] MEDS: SEVELAMER CARBONATE 800 MG TABLET PO SCH ×2 (13:08→18:17)
[2021-11-20 16:56] LABS: HEPATITIS B SURFACE ANTIGEN NEGATIVE
[2021-11-20] MEDS ORDERED: CINACALCET HCL 60MG TABLET PO SCH (17:00)
[2021-11-20] MEDS ORDERED: DOXAZOSIN MESYLATE 2MG TABLET PO SCH (21:00)
[2021-11-21 04:00] VITALS: BP 170/101
[2021-11-21] MEDS: SODIUM CHLORIDE 0.9% INJ 3ML FLUSH IVF SCH (06:24)
[2021-11-21 08:00] VITALS: BP 178/100
[2021-11-21] MEDS: SEVELAMER CARBONATE 800 MG TABLET PO SCH ×2 (09:57→12:59)
[2021-11-21] MEDS: AMLODIPINE 10MG TABLET PO SCH (09:58)
[2021-11-21] MEDS: LOSARTAN POTASSIUM 50 MG TABLET PO SCH (09:58)
[2021-11-21] MEDS: CARVEDILOL 12.5MG TABLET PO SCH (10:01)
[2021-11-21] MEDS: HYDRALAZINE HCL 50MG TABLET PO SCH ×2 (10:01→13:00)
[2021-11-21 12:00] VITALS: BP 114/70
[2021-11-21 19:57] VITALS: BP 190/107
== END 2021-11-21 20:41 | disposition home or self-care (01) | DRG 466 ==
LOC: ER 18:41 → MICUSO 23:36 → EDBEDREQ 23:39 → EDBEDREQTM 23:39 → EDBEDREQSVC 23:39 → 6EST 11-20 04:35
PROVIDERS: ADMIT Internal Medicine; ATTEND Internal Medicine
PROC: 0JH63XZ Insertion of Tunneled Vascular Access Device into Chest Subcutaneous Tissue and Fascia, Percutaneous Approach (ICD-10-PCS; principal; 2021-11-20)
PROC: 02H633Z Insertion of Infusion Device into Right Atrium, Percutaneous Approach (ICD-10-PCS; 2021-11-20)
PROC: B518ZZA Fluoroscopy of Superior Vena Cava, Guidance (ICD-10-PCS; 2021-11-20)
PROC: B548ZZA Ultrasonography of Superior Vena Cava, Guidance (ICD-10-PCS; 2021-11-20)
PROC: 5A1D70Z Performance of Urinary Filtration, Intermittent, Less than 6 Hours Per Day (ICD-10-PCS; 2021-11-20)
PROC: 5A1D70Z Performance of Urinary Filtration, Intermittent, Less than 6 Hours Per Day (ICD-10-PCS; 2021-11-21)
DX: T82.41XA Breakdown (mechanical) of vascular dialysis catheter, initial encounter (principal); N18.6 End stage renal disease; I13.2 Hypertensive heart and chronic kidney disease with heart failure and with stage 5 chronic kidney disease, or end stage renal disease; D63.8 Anemia in other chronic diseases classified elsewhere; N25.81 Secondary hyperparathyroidism of renal origin; Z20.822 Contact with and (suspected) exposure to COVID-19; I50.9 Heart failure, unspecified; Y71.2 Prosthetic and other implants, materials and accessory cardiovascular devices associated with adverse incidents; Z79.899 Other long term (current) drug therapy; Z99.2 Dependence on renal dialysis; Z91.14 Patient's other noncompliance with medication regimen; Z82.49 Family history of ischemic heart disease and other diseases of the circulatory system; Y92.89 Other specified places as the place of occurrence of the external cause
CPT/HCPCS: 36415; 36558; 76937; 77001; 80053; 83880; 85027; 86705; 86709; 86803; 87340; 87426; 99152; 99153; 99285; J0690; J1200; J1644; J1940; J3010; J3490; G0500

== ENCOUNTER 2021-12-12 22:02 | Emergency (ER) | payer MEDICAID ==
[~2021-12-12] VITALS: Ht 175.3 cm; Wt 63.0 kg
[2021-12-12 23:38] VITALS: BP 153/106
== END 2021-12-12 23:39 | disposition home or self-care (01) ==
LOC: ER 22:02
DX: T82.838A Hemorrhage due to vascular prosthetic devices, implants and grafts, initial encounter (principal); I12.0 Hypertensive chronic kidney disease with stage 5 chronic kidney disease or end stage renal disease; N18.6 End stage renal disease; Z90.89 Acquired absence of other organs; Z99.2 Dependence on renal dialysis; Y84.1 Kidney dialysis as the cause of abnormal reaction of the patient, or of later complication, without mention of misadventure at the time of the procedure; Y92.89 Other specified places as the place of occurrence of the external cause
CPT/HCPCS: 71045; 99283